=== PATIENT | female | born 1970 | race Two or more races ===

== ENCOUNTER 2023-12-28 14:43 | Emergency (ER) | payer OTHER ==
[~2023-12-28] VITALS: Ht 170.2 cm; Wt 103.9 kg
[2023-12-28] MEDS ORDERED: SYNTHROID150 MCG PO (14:50)
[2023-12-28] MEDS ORDERED: FOLIC ACID1 MG PO (14:50)
[2023-12-28] MEDS ORDERED: SIMVASTATIN40 MG PO (14:50)
[2023-12-28] MEDS ORDERED: ROCALTROL0.25 MCG (14:50)
[2023-12-28] MEDS ORDERED: VITAMIN D350 MCG PO (14:51)
[2023-12-28] MEDS ORDERED: CLONAZEPAM2 MG PO (14:51)
[2023-12-28] MEDS ORDERED: MEDROL4 MG PO (14:51)
[2023-12-28] MEDS ORDERED: LIDOCAINE HCL 1% 10ML VIAL ONE (16:26)
[2023-12-28] MEDS ORDERED: CEFTRIAXONE SODIUM 1,000 MG VIAL IV ONE (16:30)
[2023-12-28] MEDS ORDERED: TETANUS & DIPHTHERIA TOX,ADULT 0.5 ML VIAL IM ONE (16:30)
[2023-12-28] MEDS ORDERED: CEFTRIAXONE SODIUM 1,000 MG VIAL ONE (16:31)
[2023-12-28] MEDS ORDERED: TETANUS DIPHTHERIA TOX. ADSOR 5 ML VIAL IM ONE (16:31)
[2023-12-28] MEDS ORDERED: CEPHALEXIN500 M1 PO (18:52)
[2023-12-28] MEDS ORDERED: DICLOFENAC SODI50 MG PO (18:58)
== END 2023-12-28 19:19 ==
LOC: ER 14:44
DX: S81.011A Laceration without foreign body, right knee, initial encounter (principal); W45.8XXA Other foreign body or object entering through skin, initial encounter; Y93.89 Activity, other specified; Y92.89 Other specified places as the place of occurrence of the external cause; Y99.9 Unspecified external cause status